=== PATIENT | male | born 1985 | race Caucasian/White ===

== ENCOUNTER → 2022-12-11 | Outpatient (CLI) | payer OTHER ==
[~2022-12-11] MED LIST: CEPH500 PO; IBUP600 PO
[2022-12-14 05:12] LABS: HBSAG SCREEN Negative (Negative); HCV ANTIBODY Non Reactive (Non Reactive)
[2022-12-14 09:14] LABS: HIV AB/P24 AG SCREEN Non Reactive (Non Reactive)
== END ==
LOC: LAB SHORT 17:18 → LAB 17:18
PROVIDERS: Chiropractor
DX: Z77.21 Contact with and (suspected) exposure to potentially hazardous body fluids (principal)
CPT/HCPCS: 84460; 86317; 86803; 87340; 87389

== ENCOUNTER 2025-05-04 05:06 | Emergency (ER) | payer OTHER ==
[~2025-05-04] VITALS: Ht 180.3 cm; Wt 97.5 kg
[2025-05-04 06:30] VITALS: BP 127/95
[2025-05-04] MEDS ORDERED: DICY20 PO (06:38)
== END 2025-05-04 06:48 | disposition home or self-care (01) ==
LOC: ER 05:06
DX: A08.4 Viral intestinal infection, unspecified (principal)
CPT/HCPCS: 99283; A9270